=== PATIENT | male | born 1995 | race Caucasian/White ===

== ENCOUNTER → 2016-10-02 | Outpatient (CLI) | payer OTHER ==
--- NOTE | 2016-10-02 16:58 | DIAGNOSTIC IMAGING REPORT ---
RIGHT FINGER(S) MIN 2 VIEWS CLINICAL HISTORY: 21 years-old Male presenting with history of laceration at the distal portion of the proximal phalanx of the right fifth finger on the palmar side, difficulty straightening finger, pain. TECHNIQUE: Frontal, oblique, and lateral views of the right fifth finger were obtained. COMPARISON: None. FINDINGS: No osseous fragments in the soft tissues to suggest avulsion fracture. No acute fracture or malalignment. No significant soft tissue swelling is evident. No radiopaque foreign body. IMPRESSION: No acute osseous injury of the right fifth finger. Electronically signed by: Joaquim Montgomery M.D. 10/02/2016 4:57 PM Dictated Date/Time: 10/02/2016 4:55 PM
== END | disposition home or self-care (01) ==
LOC: C.RDSM 16:30
PROVIDERS: ATTEND Physician Assistant
DX: M79.644 Pain in right finger(s) (principal)